=== PATIENT | female | born 1940 | race Caucasian/White ===

== ENCOUNTER 2024-04-23 19:56 | Inpatient (IN) | payer MEDICARE, BC ==
[~2024-04-23] VITALS: Ht 160 cm; Wt 71.2 kg
[2024-04-23] MEDS ORDERED: QUET25TA PO (20:49)
[2024-04-23 20:55] VITALS: BP 136/95; TEMP 98.2; O2SAT 98
[2024-04-23] MEDS ORDERED: ENOX40DI SUBCUT (21:09)
[2024-04-23] MEDS ORDERED: HYDR-3974 PO ×2 (21:11→21:18)
[2024-04-23] MEDS ORDERED: NA P133E RC (21:13)
[2024-04-23] MEDS ORDERED: MENT113O13 TOP (21:18)
[2024-04-23] MEDS ORDERED: MULT-213 PO (21:19)
[2024-04-23] MEDS ORDERED: ESCI20TA PO (21:19)
[2024-04-23] MEDS ORDERED: IBUP-76 PO (21:20)
[2024-04-23] MEDS ORDERED: FERR-68 PO (21:21)
[2024-04-23] MEDS ORDERED: BISA10SU95 RC (21:22)
[2024-04-23] MEDS ORDERED: DOCU100T2 PO (21:23)
[2024-04-23] MEDS ORDERED: SENN8.6T19 PO (21:23)
[2024-04-23] MEDS ORDERED: ASPI81TA31 PO (21:24)
[2024-04-23] MEDS ORDERED: ACET325T53 PO (21:25)
[2024-04-23] MEDS ORDERED: CHOL100099 PO (21:28)
[2024-04-23] MEDS ORDERED: OXYC10TA PO (21:43)
[2024-04-23] MEDS: IBUPROFEN 200 MG TABLET PO SCH (23:44)
[2024-04-24] MEDS ORDERED: OXYCODONE HCL 10 MG PO SCH
[2024-04-24 04:20] VITALS: BP 135/66; TEMP 98.2; O2SAT 98
[2024-04-24] MEDS ORDERED: OXYCODONE HCL 5 MG TABLET PO PRN ×2 (07:45→08:00)
[2024-04-24] MEDS: DOCUSATE SODIUM 100 MG CAPSULE PO SCH (09:52)
[2024-04-24] MEDS: ASPIRIN 81 MG TAB.CHEW PO SCH (09:52)
[2024-04-24] MEDS: ESCITALOPRAM OXALATE 10 MG TABLET PO SCH (09:52)
[2024-04-24] MEDS: FERROUS SULFATE 325 MG TABEC PO SCH (09:52)
[2024-04-24] MEDS: BISACODYL 10 MG SUPP.RECT RC SCH (09:53)
[2024-04-24] MEDS: ACETAMINOPHEN 325 MG TABLET PO PRN (09:53)
[2024-04-24] MEDS: ENOXAPARIN SODIUM 40 MG/0.4 ML DISP.SYRIN SQ SCH (09:54)
[2024-04-24] MEDS ORDERED: PANT40TA49 PO (11:29)
[2024-04-24] MEDS ORDERED: FLEET ENEMA 133 ML BOTTLE RC PRN (11:30)
[2024-04-24] MEDS ORDERED: BISACODYL 10 MG SUPP.RECT RC PRN (11:30)
[2024-04-24 11:42] VITALS: TEMP 97.7
[2024-04-24 12:00] VITALS: BP 102/48; TEMP 97.7
[2024-04-24] MEDS ORDERED: IBUPROFEN 400 MG TABLET PO PRN (13:30)
[2024-04-24] MEDS: HYDROCODONE/APAP 5-325MG TABLET PO PRN (14:29)
[2024-04-24 20:00] VITALS: TEMP 98.3
[2024-04-24] MEDS: QUETIAPINE FUMARATE 25 MG TABLET PO SCH (20:12)
[2024-04-24] MEDS: SENNOSIDES 1 TABLET PO SCH (20:12)
[2024-04-25 04:00] VITALS: TEMP 98.5
[2024-04-25 05:25] VITALS: O2SAT 96
[2024-04-25 07:52] LABS: BASOPHILS # (AUTO) 0.1 K/UL (0.0-0.2); BASOPHILS % (AUTO) 1.2 % (0.0-2.0); EOSINOPHILS # (AUTO) 0.4 K/uL (0.0-0.7); EOSINOPHILS % (AUTO) 6.4 % (0.0-7.0); HEMATOCRIT 23.5 % (31.2-41.9); HEMOGLOBIN 7.7 g/dL (10.9-14.3); LYMPHOCYTES # (AUTO) 1.6 K/uL (0.8-4.8); LYMPHOCYTES % (AUTO) 24.2 % (20.5-51.5); MEAN CORPUSCULAR HEMOGLOBIN 28.3 uug (24.7-32.8); MEAN CORPUSCULAR HGB CONC 33 g/dL (32.3-35.6); MEAN CORPUSCULAR VOLUME 86.3 fL (75.5-95.3); MONOCYTES # (AUTO) 0.7 K/uL (0.1-1.30); MONOCYTES % (AUTO) 10.1 % (0.0-11.0); NEUTROPHILS # (AUTO) 3.8 K/uL (1.8-8.9); NEUTROPHILS % (AUTO) 58.1 % (38.5-71.5); PLATELET COUNT (AUTO) 457 K/uL (179-408); RED BLOOD CELL COUNT(AUTO) 2.72 MIL/uL (3.63-4.92); RED CELL DISTRIBUTION WIDTH 14.6 % (12.3-17.7); WHITE BLOOD COUNT (AUTO) 6.5 K/uL (3.8-11.8)
[2024-04-25 08:01] LABS: CALCIUM 8.7 mg/dL (8.5-10.1); CREATININE 0.7 mg/dL (0.6-1.3); POTASSIUM 3.4 mmol/L (3.5-5.1)
[2024-04-25 09:11] LABS: DIFFERENTIAL COMMENT 1
[2024-04-25 11:00] VITALS: BP 113/44; TEMP 98.5; O2SAT 98
[2024-04-25] MEDS: PANTOPRAZOLE SODIUM 40 MG TABLET.DR PO SCH (11:44)
[2024-04-25] MEDS: SOD FERRIC GLUC COMPLX/SUCROSE 125 MG in IV NORMAL SALINE 100 ML IV SCH (14:22)
[2024-04-25 16:20] VITALS: BP 134/73; TEMP 97.8; O2SAT 96
[2024-04-25 20:00] VITALS: BP 147/78; TEMP 99.3; O2SAT 95
[2024-04-25] MEDS: QUETIAPINE FUMARATE 25 MG TABLET PO SCH (20:19)
[2024-04-26 06:09] VITALS: BP 140/60; TEMP 98; O2SAT 96
[2024-04-26 07:30] LABS: BASOPHILS # (AUTO) 0.1 K/UL (0.0-0.2); BASOPHILS % (AUTO) 1.2 % (0.0-2.0); EOSINOPHILS # (AUTO) 0.4 K/uL (0.0-0.7); EOSINOPHILS % (AUTO) 5.8 % (0.0-7.0); HEMATOCRIT 25.3 % (31.2-41.9); HEMOGLOBIN 8.4 g/dL (10.9-14.3); LYMPHOCYTES # (AUTO) 1.8 K/uL (0.8-4.8); LYMPHOCYTES % (AUTO) 24.4 % (20.5-51.5); MEAN CORPUSCULAR HEMOGLOBIN 28.9 uug (24.7-32.8); MEAN CORPUSCULAR HGB CONC 33 g/dL (32.3-35.6); MEAN CORPUSCULAR VOLUME 86.8 fL (75.5-95.3); MONOCYTES # (AUTO) 0.7 K/uL (0.1-1.30); MONOCYTES % (AUTO) 10.4 % (0.0-11.0); NEUTROPHILS # (AUTO) 4.2 K/uL (1.8-8.9); NEUTROPHILS % (AUTO) 58.2 % (38.5-71.5); PLATELET COUNT (AUTO) 535 K/uL (179-408); RED BLOOD CELL COUNT(AUTO) 2.91 MIL/uL (3.63-4.92); RED CELL DISTRIBUTION WIDTH 14.3 % (12.3-17.7); WHITE BLOOD COUNT (AUTO) 7.2 K/uL (3.8-11.8)
[2024-04-26 07:39] LABS: CALCIUM 8.6 mg/dL (8.5-10.1); CARBON DIOXIDE 30 mmol/L (21-32); CHLORIDE 102 mmol/L (98-107); CREATININE 0.7 mg/dL (0.6-1.3); GLUCOSE 94 mg/dL (74-106); POTASSIUM 3.3 mmol/L (3.5-5.1); SODIUM SERUM 137 mmol/L (136-145); UREA NITROGEN, BLOOD 11 mg/dL (7-18)
[2024-04-26 07:49] LABS: DIFFERENTIAL COMMENT 1
[2024-04-26] MEDS ORDERED: FLEET ENEMA 133 ML BOTTLE RC SCH (09:00)
[2024-04-26] MEDS: POTASSIUM CHLORIDE 20 MEQ TAB.PRT.SR PO ONE (11:47)
[2024-04-26 15:16] VITALS: BP 127/56; TEMP 98.1; O2SAT 96
[2024-04-26 16:34] VITALS: O2SAT 96
[2024-04-26 20:00] VITALS: BP 134/67; TEMP 98.4; O2SAT 92
[2024-04-27 05:02] VITALS: O2SAT 97
[2024-04-27 06:00] VITALS: BP 146/65; TEMP 99.5; O2SAT 99
[2024-04-27 12:00] VITALS: BP 109/59; TEMP 97.7; O2SAT 97
[2024-04-27 15:57] LABS: *BILIRUBIN,URIN NEGATIVE (NEGATIVE); *CLARITY,URINE CLEAR (CLEAR); *COLOR,URINE YELLOW (YELLOW); *KETONES,URINE NEGATIVE (NEGATIVE); *PROTEIN,URINE 1+ (NEGATIVE); LEUKOCYTE ESTERASE ,URINE 1+ (NEGATIVE); NITRITE, URINE NEGATIVE (NEGATIVE); UGLUCOSE NEGATIVE (NEGATIVE)
[2024-04-27 16:00] VITALS: BP 113/52; TEMP 98.2; O2SAT 96
[2024-04-27 16:13] LABS: *BLOOD, URINE TRACE (NEGATIVE)
[2024-04-27 18:22] LABS: BACTERIA,URINE FEW /HPF (NONE SEEN); RBC,URINE 0-3 /HPF (0-3); SQUAMOUS EPITHELIAL CELL,UR FEW /HPF (NONE SEEN); YEAST,URINE MODERATE /HPF (NONE SEEN)
[2024-04-27 20:00] VITALS: BP 127/49; TEMP 97.2; O2SAT 99
[2024-04-28 05:51] VITALS: BP 109/52; TEMP 98.2; O2SAT 100
[2024-04-28 06:16] VITALS: O2SAT 97
[2024-04-28 12:00] VITALS: BP 126/68; TEMP 97.7; O2SAT 97
[2024-04-28 16:00] VITALS: BP 112/48; TEMP 98.1; O2SAT 94
[2024-04-28 20:00] VITALS: BP 117/57; TEMP 98.8; O2SAT 98
[2024-04-28 22:48] VITALS: O2SAT 97
[2024-04-29 05:24] VITALS: BP 133/57; TEMP 99; O2SAT 98
[2024-04-29 16:30] VITALS: BP 122/60; TEMP 98.3; O2SAT 96
[2024-04-29 19:54] VITALS: O2SAT 96
[2024-04-29 20:00] VITALS: BP 120/55; TEMP 98.6; O2SAT 96
[2024-04-30 06:38] VITALS: BP 126/64; TEMP 98; O2SAT 99
[2024-04-30 09:00] VITALS: BP 105/43; TEMP 98.2; O2SAT 96
[2024-04-30 15:57] VITALS: BP 116/69; TEMP 98.7; O2SAT 96
[2024-04-30 20:00] VITALS: TEMP 98.4
[2024-04-30 20:40] VITALS: O2SAT 96
[2024-05-01] MEDS: ENSURE WITH FIBER 237 ML LIQUID (CHOCOLATE) PO SCH (14:00)
[2024-05-01 16:00] VITALS: TEMP 97.5
[2024-05-01 19:25] VITALS: BP 111/55; TEMP 98.1; O2SAT 96
[2024-05-02 06:10] VITALS: BP 110/41; TEMP 98.6; O2SAT 100
[2024-05-02 08:40] VITALS: BP 118/64; TEMP 98; O2SAT 99
[2024-05-02 16:05] VITALS: BP 105/47; TEMP 98.1
[2024-05-02] MEDS ORDERED: REMEDY ESSENTIAL ZINC PASTE 113 GM TOP PRN (16:45)
[2024-05-02] MEDS: DOCUSATE SODIUM 100 MG/10 ML LIQUID UDC PO SCH (17:44)
[2024-05-02 18:00] VITALS: O2SAT 96
[2024-05-02 19:20] VITALS: BP 124/55; TEMP 98.7; O2SAT 96
[2024-05-03 12:00] VITALS: BP 104/48; TEMP 98.2; O2SAT 99
[2024-05-03 16:00] VITALS: BP 102/43; TEMP 97.3; O2SAT 97
[2024-05-03 16:26] VITALS: O2SAT 98
[2024-05-03 19:49] VITALS: BP 110/62; TEMP 97.9; O2SAT 98
[2024-05-03 20:20] VITALS: O2SAT 98
[2024-05-04 05:42] VITALS: BP 123/59; TEMP 97.8; O2SAT 98
[2024-05-04 14:06] VITALS: O2SAT 98
[2024-05-04 15:03] VITALS: BP 136/44; TEMP 98.2; O2SAT 95
[2024-05-04 20:37] VITALS: O2SAT 96
[2024-05-05 02:48] VITALS: BP 114/56; TEMP 98.2; O2SAT 95
[2024-05-05 07:00] VITALS: BP 129/52; TEMP 97.9; O2SAT 92
[2024-05-05 15:07] VITALS: BP 100/45; TEMP 97.6; O2SAT 92
[2024-05-05 21:21] VITALS: BP 110/88; TEMP 98.1; O2SAT 97
[2024-05-06 07:15] VITALS: BP 120/46; TEMP 97.9; O2SAT 95
[2024-05-06 16:00] VITALS: BP 137/68; TEMP 98.5; O2SAT 93
[2024-05-07 12:20] VITALS: O2SAT 96
[2024-05-07 15:50] VITALS: BP 129/59; TEMP 97.7; O2SAT 99
[2024-05-07 20:30] VITALS: BP 131/64; TEMP 98; O2SAT 97
[2024-05-08 04:39] VITALS: BP 123/51; TEMP 98; O2SAT 97
[2024-05-08 15:48] VITALS: BP 95/52; TEMP 97.9; O2SAT 98
[2024-05-08 20:31] VITALS: BP 94/50; TEMP 98.8; O2SAT 97
[2024-05-09 04:30] VITALS: BP 104/60; TEMP 98.7; O2SAT 97
[2024-05-09 08:00] VITALS: BP 99/53; TEMP 97.8; O2SAT 95
[2024-05-09 15:00] VITALS: BP 103/51; TEMP 97.9; O2SAT 95
== END 2024-05-09 15:40 | disposition home health service (06) | DRG 949 ==
PROVIDERS: ADMIT Physical Medicine & Rehabilitation Pain Medicine; ATTEND Physical Medicine & Rehabilitation Pain Medicine
PROC: 05HC33Z Insertion of Infusion Device into Left Basilic Vein, Percutaneous Approach (ICD-10-PCS; principal; 2024-04-28)
DX: T84.020D Dislocation of internal right hip prosthesis, subsequent encounter (principal); D68.59 Other primary thrombophilia; E44.0 Moderate protein-calorie malnutrition; G93.40 Encephalopathy, unspecified; F02.80 Dementia in other diseases classified elsewhere, unspecified severity, without behavioral disturbance, psychotic disturbance, mood disturbance, and anxiety; G30.9 Alzheimer's disease, unspecified; M19.90 Unspecified osteoarthritis, unspecified site; W18.30XD Fall on same level, unspecified, subsequent encounter; Z87.440 Personal history of urinary (tract) infections; B30.9 Viral conjunctivitis, unspecified; Z96.641 Presence of right artificial hip joint; D64.9 Anemia, unspecified
CPT/HCPCS: 36415; 73502; 85025; 97535-GO-CO; A4663; A6209; A6213; J1650; J2916